=== PATIENT | female | born 1995 ===

== ENCOUNTER 2024-01-29 13:11 | Emergency (ER) | payer OTHER, SELFPAY ==
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
[2024-01-29 13:28] VITALS: BP 106/72; PULSE 87; RESP 18; TEMP 36.6; O2SAT 100; BMI 26.8
== END 2024-01-29 17:49 | disposition left against medical advice (07) ==
PROVIDERS: Emergency Provider Emergency Medicine Emergency Medical Services
DX: S29.9XXA Unspecified injury of thorax, initial encounter (principal); W50.0XXA Accidental hit or strike by another person, initial encounter; R07.9 Chest pain, unspecified; M54.6 Pain in thoracic spine; Z53.21 Procedure and treatment not carried out due to patient leaving prior to being seen by health care provider; Y93.83 Activity, rough housing and horseplay; Y92.9 Unspecified place or not applicable; Y99.9 Unspecified external cause status
CPT/HCPCS: 71046; 99281; 99283